=== PATIENT | female | born 1950 | race Caucasian/White ===

== ENCOUNTER 2016-06-18 11:20 | Day surgery (SDC) | payer MEDICARE ==
[2016-06-18] MEDS ORDERED: ceFAZolin 2 GM PREMIX 50 ML IV SCH (11:45)
[2016-06-18] MEDS ORDERED: POVIDONE IODINE 5% (ANTISEPSIS KIT) 4 APPLICATIONS EACH NARE SCH (11:45)
[2016-06-18] MEDS ORDERED: LANTUS2P SQ (11:46)
[2016-06-18] MEDS ORDERED: IRBE150T15 PO (11:49)
[2016-06-18] MEDS ORDERED: PLAV75TA29 PO (11:49)
[2016-06-18] MEDS ORDERED: ASPI1TAB69 PO (11:49)
[2016-06-18] MEDS ORDERED: METF1000 PO (11:49)
[2016-06-18] MEDS ORDERED: ROSU1TAB6 PO (11:49)
[2016-06-18] MEDS ORDERED: CITA20TA4 PO (11:49)
[2016-06-18] MEDS: CHLORHEXIDINE GLUCONATE 2 % 1 PACK (2 CLOTHS) TOPICAL SCH ×2 (11:55→12:09)
[2016-06-18] MEDS ORDERED: MUPIROCIN 2% OINT 1 APPLIC/GM SYR NASAL SCH (12:00)
[2016-06-18] MEDS ORDERED: MIDAZOLAM HCL 5 MG/5 ML VIAL ONE (12:04)
--- NOTE | 2016-06-20 10:59 | MR ---
cc: MATHEW VAUGHAN DATE 06/18/2016 INDICATIONS Recurrent TIA, evaluation for atrial fibrillation. PROCEDURE PERFORMED 1. Placement of Medtronic Reveal LINQ MRI compatible loop monitor. 2. Moderate sedation. ACCESS SITE Left subclavicular area EQUIPMENT USED Medtronic Reveal LINQ model LNQ11 MRI compatible loop monitor, serial number [id number]. PROCEDURE After the patient underwent moderate sedation, the chest was prepped and draped in the usual sterile manner. Medtronic Reveal LINQ monitor was placed without difficulty. R-wave obtained was 0.42 millivolts. The patient tolerated the procedure well. DIAGNOSIS Successful placement of a Medtronic Reveal LINQ MRI compatible loop monitor. DISPOSITION Ms. Oliveira will continue her current medical program. She will see Dr. Olson for neurology followup due to her recurrent TIA. I will see her back for followup in our office as well. MD KAYLYNN Luevano/TIFFANIE /1:40 PM /10:47 AM [facility]Tom
== END 2016-06-18 14:32 | disposition home or self-care (01) ==
LOC: HDIC 11:20 → HDOC 11:20
PROVIDERS: ATTEND Internal Medicine Interventional Cardiology
DX: G45.9 Transient cerebral ischemic attack, unspecified (principal); I10 Essential (primary) hypertension; E78.5 Hyperlipidemia, unspecified; E11.9 Type 2 diabetes mellitus without complications
CPT/HCPCS: 33282; C1764; J0690; J2250; J3010